=== PATIENT | male | born 1955 | race Caucasian/White ===

== ENCOUNTER 2016-06-19 20:42 | Emergency (ER) | payer OTHER, BC ==
[~2016-06-19] VITALS: Ht 180.3 cm; Wt 72.7 kg
[~2016-06-19 20:42] MED LIST: AMOXICILLIN500 M1 PO; APPLE CIDER VINEGAR PO; APRESOLINE10 MG PO; APRESOLINE25 MG PO; ASCORBIC ACID100 MG PO; ASPIRIN EC325 MG PO; Ascorbic Acid,Ester- PO; CALCITRIOL0.5 MCG PO; CARVEDILOL3.125 MG PO; COD LIVER OIL1 EACH PO; COLACE100 MG PO; CRANBERRY475 MG PO; Cod Liver Oil PO; DAILY VALUE1 EACH PO; ENDOCET 5-3251 EACH PO; EYE DROP TEARS15 ML BOTH EYES; FINASTERIDE5 MG PO; FISH OIL 1,0001 EAC7 PO; GARLIC1 EAC1 PO; GARLIC1000 MG PO; IRON325 MG PO; KEFLEX250 MG PO; KEPPRA750 MG PO; Keppra PO; LAMICTAL100 MG; LAMICTAL100 MG PO; LaMICtal PO; Lomotil,Lonox PO; MULTI VITAMIN PO; NABI650T PO; NITROFURANTOIN100 M1 PO; PANTOPRAZOLE SO40 MG PO; Sodium Bicarbonate PO; VITAMIN C1000 MG PO; VITAMIN D2000 INTUN PO; Vicodin,Norco 5/325 PO; [UNRECOGNIZED DRUG - OTHER]; keppra; lamictal
[2016-06-19 21:24] LABS: HEMATOCRIT 28.9 % (38.0-50.0); MCH 28.5 PG (29.0-34.0); MCHC 33.2 G/DL (30.0-36.0); MCV 85.8 FL (86-99); MEAN PLAT.VOLUME 8.8 uM^3 (9.0-12.4); PLATELET COUNT 263 K/uL (156-360); RBC DIS.WIDTH-CV 12.9 % (11.8-14.6); RBC DIS.WIDTH-SD 38.6 % (39-53); RED BLOOD COUNT 3.37 M/uL (4.00-5.50)
[2016-06-19 21:38] LABS: CHLORIDE 111 mEq/L (99-109); POTASSIUM 4.2 mEq/L (3.7-5.4); SODIUM 142 mEq/L (136-147)
[2016-06-19 21:40] LABS: GLUCOSE 102 mg/dL (70-99)
[2016-06-19 21:41] LABS: ANION GAP 10 MEQ/L (2-14)
[2016-06-19 21:44] LABS: GFR ESTIMATE (CALCULATED) 12 mL/min/
[2016-06-19 21:45] LABS: UREA NITROGEN (BUN) 65 mg/dL (9-23)
[2016-06-19 21:50] LABS: TROP-I INTERPRETATION NEGATIVE; TROPONIN-I 0.02 ng/mL (0.0-0.30)
[2016-06-19 23:23] LABS: ADD MIUA? YES; BILIRUBIN NEGATIVE; BLOOD MODERATE; COLOR YELLOW ((YELLOW)); GLUCOSE (STRIP) NEGATIVE; KETONES NEGATIVE; LEUKOCYTES LARGE; NITRITE NEGATIVE; PROTEIN (STRIP) >=500; SPECIFIC GRAVITY 1.008 (1.000-1.030); UROBILINOGEN 0.2 MG/DL (0.2-1.0)
[2016-06-20] LABS: BACTERIA 1+ /HPF; EPITHELIAL CELLS NONE SEEN /HPF; MUCUS TRACE /LPF; RED BLOOD CELLS TNTC /HPF (0-5); UCUL ADDED? YES; WHITE BLOOD CELLS TNTC /HPF (0-5)
[2016-06-20 01:49] VITALS: BP 194/100
== END 2016-06-20 01:50 | disposition home or self-care (01) ==
LOC: EME → EDBD 20:42 → EME 20:42
PROVIDERS: Emergency Medicine
DX: I10 Essential (primary) hypertension (principal); N18.6 End stage renal disease; D64.9 Anemia, unspecified; N39.0 Urinary tract infection, site not specified; R55 Syncope and collapse; G40.909 Epilepsy, unspecified, not intractable, without status epilepticus
CPT/HCPCS: 71020; 80048; 81003; 84484; 85027; 87077; 87086; 87186; 93005; 99281; 99284

== ENCOUNTER 2016-09-14 17:49 | Inpatient (IN) | payer OTHER, BC ==
[~2016-09-14] VITALS: Ht 180.3 cm; Wt 75.6 kg
[2016-09-14 19:18] LABS: HEMATOCRIT 18.6 % (38.0-50.0); MCH 28.2 PG (29.0-34.0); MCHC 33.3 G/DL (30.0-36.0); MCV 84.5 FL (86-99); MEAN PLAT.VOLUME 8.8 uM^3 (9.0-12.4); PLATELET COUNT 345 K/uL (156-360); RBC DIS.WIDTH-SD 39.4 % (39-53); WHITE BLOOD COUNT 5.7 K/uL (4.1-10.2)
[2016-09-14 19:24] LABS: CHLORIDE 103 mEq/L (99-109); POTASSIUM 4.4 mEq/L (3.7-5.4); SODIUM 133 mEq/L (136-147)
[2016-09-14 19:26] LABS: GLUCOSE 105 mg/dL (70-99)
[2016-09-14 19:28] LABS: ANION GAP 11 MEQ/L (2-14); TOTAL BILIRUBIN 0.3 mg/dL (0.0-1.0)
[2016-09-14 19:30] LABS: ALKALINE PHOSPHATASE 122 IU/L (3-129); GFR ESTIMATE (CALCULATED) 11 mL/min/
[2016-09-14 19:31] LABS: UREA NITROGEN (BUN) 53 mg/dL (9-23)
[2016-09-14 19:36] LABS: TROP-I INTERPRETATION NEGATIVE; TROPONIN-I < 0.01 ng/mL (0.0-0.30)
[2016-09-14 20:15] LABS: PROTHROMBIN TIME 10.2 (9.2-11.2)
[2016-09-14] MEDS ORDERED: NABI650T PO ×2 (21:12→21:13)
[2016-09-14 21:29] VITALS: BP 182/98
[2016-09-15] VITALS (13 sets, daily range): BP systolic 150–193; BP diastolic 70–100
[2016-09-15 00:06] LABS: ADD MIUA? YES; BILIRUBIN NEGATIVE; BLOOD MODERATE; COLOR YELLOW ((YELLOW)); GLUCOSE (STRIP) NEGATIVE; KETONES NEGATIVE; LEUKOCYTES LARGE; NITRITE NEGATIVE; PROTEIN (STRIP) 100; SPECIFIC GRAVITY 1.004 (1.000-1.030); UROBILINOGEN 0.2 MG/DL (0.2-1.0)
[2016-09-15 00:11] LABS: BACTERIA 2+ /HPF; EPITHELIAL CELLS RARE /HPF; MUCUS NONE SEEN /LPF; UCUL ADDED? YES; WHITE BLOOD CELLS TNTC /HPF (0-5); WHITE BLOOD CELLS CLUMP FEW /HPF (0-5)
[2016-09-15 05:59] LABS: HEMATOCRIT 21.5 % (38.0-50.0); MCV 85.3 FL (86-99)
[2016-09-15 06:23] LABS: ALKALINE PHOSPHATASE 117 IU/L (3-129); ANION GAP 11 MEQ/L (2-14); CHLORIDE 105 MEQ/L (99-109); GFR ESTIMATE (CALCULATED) 11 mL/min/; GLUCOSE 90 mg/dL (70-99); POTASSIUM 4.4 MEQ/L (3.7-5.4); SAMPLE HEMOLYSIS CHECK 0; SAMPLE ICTERIC CHECK 0; SAMPLE LIPEMIA CHECK 0; SODIUM 135 MEQ/L (136-147); TOTAL BILIRUBIN 0.5 MG/DL (0.0-1.0); UREA NITROGEN (BUN) 52 mg/dL (9-23)
[2016-09-15 12:04] LABS: IRON 72 MCG/DL (35-150)
[2016-09-15 12:19] LABS: HEMATOCRIT 22.6 % (38.0-50.0); MCV 85.3 FL (86-99)
[2016-09-16 08:18] VITALS: BP 162/84
[2016-09-16 08:59] LABS: HEMATOCRIT 27.8 % (38.0-50.0); MCH 27.8 PG (29.0-34.0); MCHC 33.1 G/DL (30.0-36.0); MEAN PLAT.VOLUME 9.1 uM^3 (9.0-12.4); PLATELET COUNT 289 K/uL (156-360); RBC DIS.WIDTH-CV 13.9 % (11.8-14.6); RBC DIS.WIDTH-SD 42.9 % (39-53)
[2016-09-16 09:05] LABS: RED BLOOD COUNT 3.31 M/uL (4.00-5.50)
[2016-09-16 09:24] LABS: ANION GAP 13 MEQ/L (2-14); CHLORIDE 105 MEQ/L (99-109); GFR ESTIMATE (CALCULATED) 11 mL/min/; GLUCOSE 76 mg/dL (70-99); POTASSIUM 4.6 MEQ/L (3.7-5.4); SAMPLE HEMOLYSIS CHECK 0; SAMPLE ICTERIC CHECK 0; SAMPLE LIPEMIA CHECK 0; SODIUM 139 MEQ/L (136-147); UREA NITROGEN (BUN) 58 mg/dL (9-23)
[2016-09-16] MEDS ORDERED: DILTIAZEM 24HR120 MG PO (10:53)
[2016-09-16] MEDS ORDERED: LEVAQUIN250 MG PO ×2 (12:50→12:54)
== END 2016-09-16 14:11 | disposition home or self-care (01) | DRG 812 ==
LOC: EME 17:49 → 5SOUTH 20:25 → EDOF 20:25 → 5SOUTH 22:37
PROVIDERS: Emergency Medicine; Hospitalist; Internal Medicine
PROC: 30233N1 Transfusion of Nonautologous Red Blood Cells into Peripheral Vein, Percutaneous Approach (ICD-10-PCS; principal; 2016-09-14)
DX: D62 Acute posthemorrhagic anemia (principal); N17.9 Acute kidney failure, unspecified; X58.XXXA Exposure to other specified factors, initial encounter; Y93.89 Activity, other specified; E87.2 Acidosis; I12.0 Hypertensive chronic kidney disease with stage 5 chronic kidney disease or end stage renal disease; N18.5 Chronic kidney disease, stage 5; N31.9 Neuromuscular dysfunction of bladder, unspecified; N30.01 Acute cystitis with hematuria; B96.89 Other specified bacterial agents as the cause of diseases classified elsewhere; E87.1 Hypo-osmolality and hyponatremia; R56.9 Unspecified convulsions; D63.1 Anemia in chronic kidney disease; N40.1 Benign prostatic hyperplasia with lower urinary tract symptoms; R33.8 Other retention of urine; S37.30XA Unspecified injury of urethra, initial encounter
CPT/HCPCS: 36415; 71010; 80048; 80053; 81003; 82607; 82728; 82746; 83540; 84466; 84484; 85014; 85018; 85025; 85027; 85045; 85610; 86900; 86901; 86920; 87077; 87086; 87186; 93005; 99281; 99285; J1940; P9016